=== PATIENT | female | born 1970 | race Caucasian/White ===

== ENCOUNTER 2018-08-01 15:03 | Outpatient (CLI) | payer OTHER ==
--- NOTE | 2018-08-01 18:23 | MRI ---
MRI LUMBAR SPINE WITHOUT CONTRAST: Date: 08/01/18 Multiplanar, multisequential imaging of lumbar spine obtained. INDICATION: Lumbar radiculopathy. FINDINGS: Lumbar vertebra maintain normal height and alignment. There are degenerative changes present with deg enerative osteophytes. S1 is transitional. At L1-2, there is mild disc bulge without central canal or foraminal stenosis. At L2-3, there is mild disc bulge with facet hypertrophy resulting in mild central canal stenosis. At L3-4, there is mild disc bulge with facet hypertrophy resulting in mild central canal stenosis. At L4-5, there is an annular fissure with mild disc bulge and facet hypertrophy resulting in mild pippa tral canal stenosis. Asymmetric bulge with annular fissure to the left may contact the lateral left L 4 nerve root. At L5-S1, there is a broad based disc bulge with a focal protrusion centrally slightly and slightly t o the left, which impinges on the thecal sac and mildly displaces the traversing left S1 nerve root. There is slight inferior extension of this protrusion. The inferiorly protruded disc measures approxi mately 10.0 mm AP dimension in the axial plane. Asymmetric disc osteophyte complex projects laterally to the right and extends into the right foramina and appears to contact and mildly displace the exit ing right L5 nerve root. IMPRESSION: 1. Disc protrusion at L5-S1 as described above with right disc osteophyte complex at this level as d escribed above. 2. Mild bulges at the other levels as noted above. POS: [facility]
== END 2018-08-01 15:04 | disposition home or self-care (01) ==
LOC: BICMRI 15:03
PROVIDERS: ATTEND Neurological Surgery
DX: M51.16 Intervertebral disc disorders with radiculopathy, lumbar region (principal); M51.17 Intervertebral disc disorders with radiculopathy, lumbosacral region; M51.27 Other intervertebral disc displacement, lumbosacral region; M25.78 Osteophyte, vertebrae
CPT/HCPCS: 72148

== ENCOUNTER 2021-02-05 15:03 | Outpatient (CLI) | payer OTHER | END 2021-02-05 15:04 | disposition home or self-care (01) | LOC: BICMAMMO 15:03 | PROVIDERS: ATTEND Physician Assistant | DX: Z12.31 Encounter for screening mammogram for malignant neoplasm of breast (principal) | CPT/HCPCS: 77063; 77067 ==

== ENCOUNTER 2023-06-17 14:57 | Outpatient (CLI) | payer BC | END 2023-06-17 14:58 | disposition home or self-care (01) | LOC: BICMAMMO 14:57 | PROVIDERS: ATTEND Physician Assistant | DX: Z12.31 Encounter for screening mammogram for malignant neoplasm of breast (principal); Z12.2 Encounter for screening for malignant neoplasm of respiratory organs; F17.210 Nicotine dependence, cigarettes, uncomplicated; J84.10 Pulmonary fibrosis, unspecified; E27.8 Other specified disorders of adrenal gland | CPT/HCPCS: 71271; 77063; 77067 ==

== ENCOUNTER 2023-12-31 12:06 | Emergency (ER) | payer BC ==
[2023-12-31] MEDS ORDERED: HYDROcodone/Acetaminophen 5/325 mg Tablet ONE (13:24)
== END 2023-12-31 13:22 | disposition home or self-care (01) ==
LOC: ERS 12:06
DX: S82.61XA Displaced fracture of lateral malleolus of right fibula, initial encounter for closed fracture (principal); F17.210 Nicotine dependence, cigarettes, uncomplicated; W01.0XXA Fall on same level from slipping, tripping and stumbling without subsequent striking against object, initial encounter